=== PATIENT | male | born 1950 | race Caucasian/White ===

== ENCOUNTER 2020-11-29 18:10 | Inpatient (IN) | payer MEDICARE ==
[~2020-11-29] VITALS: Ht 188 cm; Wt 185.1 kg
[2020-11-29 21:07] LABS: HEMOGLOBIN 10.2 gm/dl (14.0-17.5); RED BLOOD COUNT 3.03 M/UL (4.20-5.50); WHITE BLOOD COUNT 16.9 K/UL (4.5-11.0)
[2020-11-30 05:58] LABS: RED BLOOD COUNT 2.73 M/UL (4.20-5.50); WHITE BLOOD COUNT 15.1 K/UL (4.5-11.0)
--- NOTE | 2020-11-30 06:48 | NUR ---
11/[address] GAVIN LOPES CALLED FOR CONSULT. ORDERS RECEIVED. 11/29 2299 UPDATED MD ALONSO, ORDERS RECEIVED.
[2020-11-30 09:14] LABS: ADENOVIRUS F 40/41 Not Detected (Negative); ASTROVIRUS Not Detected (Negative); CAMPYLOBACTER Not Detected (Negative); CRYPTOSPORIDIUM Not Detected (Negative); E.COLI 0157 Not Detected (Negative); ENTAMOEBA HISTOLYTICA Not Detected (Negative); ENTEROAGGREGATIVE E.COLI (EAEC Not Detected (Negative); ENTEROPATHOGENIC E.COLI (EPEC) Not Detected (Negative); ENTEROTOXIGENIC E.COLI (ETEC) Not Detected (Negative); GIARDIA LAMBLIA Not Detected (Negative); NOROVIRUS GI/GII Not Detected (Negative); PLESIOMONAS SHIGELLOIDES Not Detected (Negative); ROTOVIRUS A Not Detected (Negative); SALMONELLA Not Detected (Negative); SAPOVIRUS Not Detected (Negative); SHIG/ENTEROINVAS.ECOLI (EIEC) Not Detected (Negative); SHIGA-LIK TOX.PRO.E.COLI (STEC Not Detected (Negative); VIBRIO Not Detected (Negative); VIBRIO CHOLERAE Not Detected (Negative); YERSINIA ENTEROCOLITICA Not Detected (Negative)
[2020-11-30 12:21] LABS: CLOSTRIDIUM DIFFICILE TOX A/B DETECTED (Negative)
[2020-11-30] MEDS ORDERED: MOTRIN IB200 MG PO (13:39)
[2020-11-30] MEDS ORDERED: KLOR-CON M2020 MEQ PO (13:39)
[2020-11-30] MEDS ORDERED: BAYER CHEWABLE81 MG PO (13:39)
[2020-11-30] MEDS ORDERED: CORTISONE28 G2 TP (13:40)
[2020-11-30] MEDS ORDERED: TYLENOL325 MG PO (13:40)
[2020-11-30] MEDS ORDERED: XANAX0.5 MG PO (13:41)
[2020-11-30] MEDS ORDERED: IMODIUM CAP 2 MG2 MG PO (13:41)
[2020-11-30] MEDS ORDERED: SYNTHROID150 MCG PO (13:41)
[2020-11-30] MEDS ORDERED: BENAZEPRIL HCL40 MG PO (13:42)
[2020-11-30] MEDS ORDERED: AMLODIPINE BESY10 MG PO (13:42)
[2020-11-30] MEDS ORDERED: MILK THISTLE150 MG PO (13:42)
[2020-11-30] MEDS ORDERED: CATAPRES 0.1MG0.1 MG PO (13:43)
[2020-11-30] MEDS ORDERED: LASIX40 MG PO (13:43)
[2020-11-30] MEDS ORDERED: DAILY VITE1 EACH PO (13:43)
[2020-11-30] MEDS ORDERED: LOPRESSOR50 MG PO (13:44)
[2020-12-01 04:51] LABS: HEMOGLOBIN 8.1 gm/dl (14.0-17.5); RED BLOOD COUNT 2.47 M/UL (4.20-5.50); WHITE BLOOD COUNT 12.5 K/UL (4.5-11.0)
[2020-12-01 05:08] LABS: BUN/CREATININE RATIO 45 (0-10)
[2020-12-02 04:24] LABS: HEMOGLOBIN 7.7 gm/dl (14.0-17.5); RED BLOOD COUNT 2.29 M/UL (4.20-5.50); WHITE BLOOD COUNT 12.1 K/UL (4.5-11.0)
[2020-12-02 04:53] LABS: BUN/CREATININE RATIO 45 (0-10)
[2020-12-03 05:28] LABS: RED BLOOD COUNT 2.41 M/UL (4.20-5.50); WHITE BLOOD COUNT 10.4 K/UL (4.5-11.0)
[2020-12-03 06:05] LABS: BUN/CREATININE RATIO 36 (0-10)
[2020-12-03 17:18] LABS: BUN/CREATININE RATIO 32 (0-10)
[2020-12-04 05:16] LABS: HEMOGLOBIN 7.7 gm/dl (14.0-17.5); RED BLOOD COUNT 2.37 M/UL (4.20-5.50); WHITE BLOOD COUNT 11.2 K/UL (4.5-11.0)
[2020-12-04 05:39] LABS: BUN/CREATININE RATIO 29 (0-10)
[2020-12-05 03:09] LABS: HEMOGLOBIN 7.7 gm/dl (14.0-17.5); RED BLOOD COUNT 2.34 M/UL (4.20-5.50); WHITE BLOOD COUNT 12.3 K/UL (4.5-11.0)
[2020-12-05 03:37] LABS: BUN/CREATININE RATIO 22 (0-10)
[2020-12-06 03:23] LABS: HEMOGLOBIN 7.9 gm/dl (14.0-17.5); RED BLOOD COUNT 2.39 M/UL (4.20-5.50); WHITE BLOOD COUNT 10.7 K/UL (4.5-11.0)
[2020-12-06 03:41] LABS: BUN/CREATININE RATIO 21 (0-10)
--- NOTE | 2020-12-06 16:50 | NUR ---
16:30 PT CLEANED UP FROM BM, 16:40 PT TRANSFERRED TO 1898
[2020-12-07 05:28] LABS: HEMOGLOBIN 7.6 gm/dl (14.0-17.5); RED BLOOD COUNT 2.33 M/UL (4.20-5.50); WHITE BLOOD COUNT 10.7 K/UL (4.5-11.0)
[2020-12-07 06:02] LABS: BUN/CREATININE RATIO 20 (0-10)
--- NOTE | 2020-12-07 16:21 | NUR ---
REQUESTED A SAND BED TO [facility]. [facility] WAS NOTIFIED OF THE REQUEST. PT WAS INELIGIBLE FOR THE SAND BED BECAUSE HE EXCEEDS THE WEIGHT LIMIT.
[2020-12-08 04:02] LABS: HEMOGLOBIN 7.7 gm/dl (14.0-17.5); RED BLOOD COUNT 2.38 M/UL (4.20-5.50); WHITE BLOOD COUNT 11.1 K/UL (4.5-11.0)
[2020-12-08 04:26] LABS: BUN/CREATININE RATIO 24 (0-10)
[2020-12-09 06:31] LABS: RED BLOOD COUNT 2.61 M/UL (4.20-5.50); WHITE BLOOD COUNT 11.4 K/UL (4.5-11.0)
[2020-12-09 06:53] LABS: BUN/CREATININE RATIO 35 (0-10)
[2020-12-10 04:19] LABS: HEMOGLOBIN 8.1 gm/dl (14.0-17.5); RED BLOOD COUNT 2.62 M/UL (4.20-5.50); WHITE BLOOD COUNT 10.2 K/UL (4.5-11.0)
[2020-12-10 04:43] LABS: BUN/CREATININE RATIO 38 (0-10)
[2020-12-11 03:40] LABS: HEMOGLOBIN 8.1 gm/dl (14.0-17.5); RED BLOOD COUNT 2.52 M/UL (4.20-5.50); WHITE BLOOD COUNT 9.7 K/UL (4.5-11.0)
[2020-12-11 03:59] LABS: BUN/CREATININE RATIO 42 (0-10)
[2020-12-12 06:14] LABS: HEMOGLOBIN 8.8 gm/dl (14.0-17.5); RED BLOOD COUNT 2.74 M/UL (4.20-5.50); WHITE BLOOD COUNT 10.3 K/UL (4.5-11.0)
[2020-12-12 08:38] LABS: BUN/CREATININE RATIO 42 (0-10)
--- NOTE | 2020-12-12 08:58 | NUR ---
SPOKE WITH DR. LEHMAN CONCERNING PATIENTS BILLY CATHETER. DUE TO EXTENT OF EXCORIATION AND PATIENTS SIZE DOCTOR ZULEYKA STATED HE PREFERRED THAT THE PATIENT KEEP HIS BILLY FOR NOW.
--- NOTE | 2020-12-12 15:06 | NUR ---
X3 DAYS PATIENT GETS MORPHINE PERSCRIBED 20-30 MINUTES BEFORE NURSE AND AID DO A COMPLETE WASH OF PAIENT AND BED CHANGE WITH PERCOSET PERSCRIBED ADMINISTERED 1/[address] THROUGH THE CHANGE. PATIENT HAS DEFICATED AND REQUIRES CLEANED AND NEOSPORIN OINTMENT APPLYED LIBERALLY TO ALL AREAS FROM TOP OF BUTTOCKS TO POSTERIOR OF KNEE, ESPECIALLY IN FOLDS AND CREVICES. THEN NYSTATIN POWDER IS ASLO APPLIED LIBERALLY TO THE SAME AREAS BEFOR PATIENT IS ROLLED, BED CHANGED, AND SAME APPLYED TO OTHER SIDE. ARMPITS, PANIS AND SCROTUM ARE WASHED AND POWDERED WITH NYSTATIN POWDER. CLEAN GOWN IS APPLYED, CLEAN BLANKETS AND PATIENT IS RETURNED TO UPRIGHT POSITION WITH PILLOWS TO FLOAT ANKLES AND HEALS.
[2020-12-13 04:19] LABS: BUN/CREATININE RATIO 49 (0-10)
[2020-12-14 05:10] LABS: BUN/CREATININE RATIO 42 (0-10)
[2020-12-15 09:15] LABS: BUN/CREATININE RATIO 26 (0-10)
--- NOTE | 2020-12-15 17:51 | NUR ---
RECIEVED [place]ON PER ORDER FROM [facility], MOVED PT TO BED, MESSAGE ERROR PT WEIGHT TO MUCH FOR PROPER USE, CALLED [facility] TO INFORM THEM OF THE MESSAGE AND THAT IT IS ASKING FOR A PASSCODE, [facility] INFORMS ME THE PT IS OVER THE WEIGHT LIMIT, AND THAT THEY WOULD COME AND PICK THE BED BACK UP, THEY SUGGESTED WE USE EITHER THE SPORT OR BARIATRIC BED. I EXPLAINED THE SITUATION TO THE PATIENT AND SWITCHED THE PT OVER TO A TOTAL CARE BARIATIC BED WITH ROTATION THERAPY TURNED ON
[2020-12-17] MEDS ORDERED: LOPRESSOR 25 MG25 MG PO (12:10)
[2020-12-17] MEDS ORDERED: NYSTOP60 GM TOP (12:10)
[2020-12-17] MEDS ORDERED: NEOSPORIN OINT30 GM TOP (12:10)
[2020-12-17] MEDS ORDERED: PERCOCET 5/325 T1 EA PO (12:10)
[2020-12-17] MEDS ORDERED: XANAX0.5 MG PO (12:10)
[2020-12-17 13:01] LABS: HEMOGLOBIN 8.9 gm/dl (14.0-17.5); RED BLOOD COUNT 2.77 M/UL (4.20-5.50); WHITE BLOOD COUNT 7.4 K/UL (4.5-11.0)
[2020-12-17 13:26] LABS: BUN/CREATININE RATIO 32 (0-10)
--- NOTE | 2020-12-18 13:55 | NUR ---
REPORT CALLED AT THIS TIME TO MARU CURRAN
== END 2020-12-18 14:33 | DRG 871 ==
LOC: MED SURG 4 19:58 → CCU 19:58 → PROG CARE 19:58 → CCU 21:04 → PROG CARE 12-04 18:04 → MED SURG 4 12-06 16:43
PROVIDERS: Internal Medicine; Internal Medicine Nephrology; ADMIT Internal Medicine
PROC: 3E033XZ Introduction of Vasopressor into Peripheral Vein, Percutaneous Approach (ICD-10-PCS; 2020-11-29)
PROC: B24BZZ4 Ultrasonography of Heart with Aorta, Transesophageal (ICD-10-PCS; principal; 2020-12-02)
DX: A41.89 Other specified sepsis (principal); L89.894 Pressure ulcer of other site, stage 4; L89.323 Pressure ulcer of left buttock, stage 3; L89.313 Pressure ulcer of right buttock, stage 3; R65.21 Severe sepsis with septic shock; N17.0 Acute kidney failure with tubular necrosis; J18.9 Pneumonia, unspecified organism; N39.0 Urinary tract infection, site not specified; A04.72 Enterocolitis due to Clostridium difficile, not specified as recurrent; E87.2 Acidosis; I50.22 Chronic systolic (congestive) heart failure; E87.1 Hypo-osmolality and hyponatremia; Z68.43 Body mass index [BMI] 50.0-59.9, adult; I47.1 Supraventricular tachycardia; Z20.822 Contact with and (suspected) exposure to COVID-19; I11.0 Hypertensive heart disease with heart failure; E11.9 Type 2 diabetes mellitus without complications; E66.01 Morbid (severe) obesity due to excess calories; E78.5 Hyperlipidemia, unspecified; D50.9 Iron deficiency anemia, unspecified; E86.0 Dehydration; E03.9 Hypothyroidism, unspecified; E87.5 Hyperkalemia; F41.9 Anxiety disorder, unspecified; F42.4 Excoriation (skin-picking) disorder; F32.9 Major depressive disorder, single episode, unspecified; Z74.01 Bed confinement status; Z79.82 Long term (current) use of aspirin; Z79.01 Long term (current) use of anticoagulants; Z82.49 Family history of ischemic heart disease and other diseases of the circulatory system; Z79.4 Long term (current) use of insulin
CPT/HCPCS: ECHO; 36415; 71045; 80048; 80053; 80202; 81001; 82550; 82553; 82570; 82607; 82728; 82962; 83540; 83550; 83605; 83735; 84132; 84133; 84156; 84300; 84484; 85025; 85027; 86140; 87040; 87077; 87086; 87186; 87324; 87449; 87507; 89050; 93005; 93306; 94640; 94664; 94760; 97110; 97110-GP-CQ; 97162; 97166; 97530-GP-CQ; A6212; C9113; J0610; J0692; J1644; J1650; J1940; J2270; J3370; J7030; J7040; J7050; J7070; P9047; U0002